=== PATIENT | female | born 1985 | race African-American/Black ===

== ENCOUNTER → 2019-05-10 | Outpatient (CLI) | payer OTHER ==
--- NOTE | 2019-05-11 06:57 | REP ---
BILATERAL MAMMOGRAM WITH DIAGNOSTIC MAMMOGRAM RIGHT BREAST AND RIGHT BREAST ULTRASOUND: CLINICAL HISTORY: Right breast pain and palpable lump upper outer quadrant for 1 1/2 months. Family history of breast cancer in paternal aunt. This is a baseline study. [facility] lifetime risk of breast cancer 17.9%. MLO and CC views of both breasts were performed. There is moderately dense breast parenchyma symmetrically bilaterally. I see no mammographic evidence of mass or architectural distortion. No clustered microcalcifications are seen. Real-time sonographic evaluation of upper outer quadrant of the right breast was performed at the site of the palpable lump. There is dense fibroglandular tissue. No cystic or solid nodule is seen. IMPRESSION: ACR 2 benign. Dense breast parenchyma bilaterally. No mass or clustered microcalcifications. There is no mammographic or sonographic evidence of mass at the site of the reported palpable abnormality in the upper outer quadrant of the right breast. A negative mammogram and ultrasound should not deter biopsy if there is a clinically suspicious palpable mass present. Clinical correlation and followup is recommended. BIRADS 2: BI-RADS/ACR category 2 mammogram. Benign Findings. Electronically Signed by Brennon Vega MD 05/11/2019 10:32 P
== END ==
LOC: M RAD 13:20
PROVIDERS: ATTEND General Practice
DX: Z12.31 Encounter for screening mammogram for malignant neoplasm of breast (principal)

== ENCOUNTER 2019-11-23 09:40 | Day surgery (SDC) | payer OTHER ==
[2019-11-23] MEDS ORDERED: propofoL 200 MG/20 ML VIAL ONE (11:43)
[2019-11-23] MEDS ORDERED: LIDOCAINE 2% 100MG/5ML SDV (FOR ANES.) ONE (11:43)
[2019-11-23] MEDS ORDERED: ONDANSETRON 4MG/2ML VIAL ONE (11:43)
[2019-11-23] MEDS ORDERED: dexameTHASONE 4 MG/ML 1ML VIAL (J1100 PER 1MG) ONE (11:43)
[2019-11-23] MEDS ORDERED: KETOROLAC 60MG 2ML VIAL ONE (11:43)
[2019-11-23] MEDS ORDERED: ROCURONIUM BROMIDE 50 MG/5 ML VIAL ONE (11:43)
[2019-11-23] MEDS ORDERED: MIDAZOLAM INJ 2MG/2ML VIAL (J2250 PER 1MG) ONE (11:43)
[2019-11-23] MEDS ORDERED: fentaNYL 100 MCG/2 ML INJECTION (J3010) ONE (11:43)
[2019-11-23] MEDS ORDERED: ceFAZolin 1GM VIAL (J0690 PER 500MG) ONE (13:09)
[2019-11-23] MEDS ORDERED: HYDROmorphone HCL 2 MG/ML 1ML VIAL (J1170) ONE (14:06)
[2019-11-23] MEDS ORDERED: SUGAMMADEX SODIUM 500 MG/5 ML VIAL (BRIDION) ONE (14:06)
[2019-11-23] MEDS ORDERED: PERCOCET 5MG/325MG TAB ONE (15:09)
[2019-11-23] MEDS ORDERED: SIMETHICONE 80 MG CHEW TAB ONE (15:48)
--- NOTE | 2020-01-19 10:31 | RO ---
DATE OF PROCEDURE: November 23, 2019 PREOPERATIVE DIAGNOSES: * Menorrhagia. * Dysmenorrhea. POSTOPERATIVE DIAGNOSES: * Menorrhagia. * Dysmenorrhea. * Intramural uterine fibroids. * Endometrial polyps. PROCEDURES: * Diagnostic laparoscopy. * Diagnostic hysteroscopy. * Dilatation and curettage. * MyoSure curettage. * Polypectomy. SURGEON: Kendra Elena MD VALLEZ FILTER OPERATOR: None. I.V. FLUIDS: 800 mL lactated Ringer's. URINE OUTPUT: 300 mL. ESTIMATED BLOOD LOSS: Less than 5 mL. COMPLICATIONS: None. ANESTHESIA: GETA. FINDINGS: Approximately 15-week anteverted mildly mobile uterus and adnexa could not be palpated. Upon diagnostic laparoscopy, there was noted to be an approximately 7-cm fundal fibroid that extended to approximately half way between the normal area height of the uterus to the umbilicus. There was also noted to be two additional fibroids on the posterior portion of the uterus both on the right side and the left side of approximately 4 cm. Adnexa were noted to be normal. There was no noted endometriosis on the adnexa or the uterus or the uterosacral ligament. The cervix was noted to be normal. Within the endometrial cavity, there was noted to be multiple polyps and the patient's left side was noted to have indentation from what was presumed to be the fundal fibroid, which was significant. The ostia could not be visualized. PROCEDURE IN DETAIL: Patient was brought back to the operating room, where general anesthesia was induced, and patient was placed in the dorsal lithotomy position. Laguerre catheter was placed, and exam under anesthesia was performed with the above findings. Kennedy speculum was placed and the cervix was noted. The anterior lip of the cervix was grasped with a single-tooth tenaculum. The cervix was then dilated with a slight curved Hegar to a 16. A 0-degree hysteroscope was then advanced under hydrodistention after zeroing out the MyoSure device. Upon introduction, there was complete visualization of the cervical canal and into the lower uterine segment of the endometrium and the inside of the uterus, as noted above. There were multiple polyps noted. The evacuation device removed and MyoSure device placed. Scraping with the MyoSure device was performed in all areas with the exception of the fibroid area with gentle scraping within the area of the polys and endometrial area on both the anterior and posterior and patient's right side of the uterus. When all endometrium was removed, the intrauterine cavity was cleared and reinspected, and pictures were taken. The intrauterine cavity was then removed of all water, and hysteroscope was then removed. Single-tooth tenaculum was then removed and a sponge stick placed for uterine manipulation for the laparoscopy. Legs were then lowered. Attention was then brought to the abdomen, and gloves were then changed of the surgeon. An incision was then made in the infraumbilical fold with an 11- blade scalpel while spreading with a April clamp, and the incision was approximately 1 cm. Dissection was performed with a April clamp down to the facial layer. With elevation with our hands to elevate the abdominal cavity, the Veress needle after check with a 10 mL normal saline solution was introduced at a 45-degree angle until two pops were felt to introduce into the intra-abdominal cavity. Upon introduction, withdrawal of the syringe was performed and injection of some of the normal saline solution, and this easily passed within the Veress needle. Gas was then placed; however, opening pressure was noted to be elevated at 13-14 mm of mercury. Veress needle was attempted a second time with the same results. Veress needle was then removed, and decision was changed to be entered with a 5 mm trocar introduced under direct visualization. With elevation of the abdominal cavity with our hands, introduction at a 90-degree angle with 5 mm trocar introducer while direct visualization was performed was introduced through all layers, including the fascia and preperitoneal layer and then through the peritoneum and intra-abdominal cavity was confirmed. Introducer was then removed, and the scope confirmed intra-abdominal placement, and opening pressure was noted to be 3 mm of mercury, and the abdomen was insufflated with a total of 3 liters of carbon dioxide. Patient was then placed in Trendelenburg position, and the abdomen was then examined with the above findings. There was noted to be a very small kashif jed on the fundus of the uterus, likely secondary to the Veress needle, which is what caused elevation of the pressures upon entering previously. A second incision was placed approximately 4 cm superior to the pubic symphysis in the midline in a horizontal fashion, just under 1 cm, which was created with an 11-blade scalpel and dissected down with a April clamp to the fascia. A 5 mm trocar introducer was introduced under direct visualization without difficulty. Trocar introducer was removed, and atraumatic graspers were introduced to allow for better visualization and manipulation of the anatomy. The adnexa and uterus were easily manipulated to confirm no injury or endometriosis. Suction scuba dive training instructor was also placed for cleaning of the pelvis, which was performed. All instruments were then removed under direct visualization and removal of intra-abdominal gas. Skin incision was then closed in a subcuticular fashion with 4-0 Monocryl. Dermabond was then placed and then Band-Aids. Needle, lap, instrument counts were correct times two. Patient was in stable condition to the recovery room. OSCAR
== END 2019-11-23 16:48 | disposition home or self-care (01) ==
LOC: M SDC 09:40
PROVIDERS: ATTEND Obstetrics & Gynecology
DX: N92.4 Excessive bleeding in the premenopausal period (principal); N72 Inflammatory disease of cervix uteri; N94.6 Dysmenorrhea, unspecified; N84.0 Polyp of corpus uteri; D25.1 Intramural leiomyoma of uterus
CPT/HCPCS: 49320; 58558; 88305; J0690; J1100; J1170; J1885; J2250; J2405; J3010